=== PATIENT | male | born 2000 | race Caucasian/White ===

== ENCOUNTER 2018-02-28 14:18 | Emergency (ER) | payer OTHER, MEDICAID ==
[~2018-02-28] VITALS: Ht 172.7 cm; Wt 100.0 kg
[2018-02-28 14:40] VITALS: BP 147/70; PULSE 99; RESP 16; TEMP 98.7; O2SAT 98
[2018-02-28 14:40] LABS: AUTOMATED NEUTROPHIL # 6.4 TH/MM3 (1.8-7.7); BASOPHIL % 0.5 % (0.0-2.0); EOSINOPHIL # 0.1 TH/MM3 (0-0.4); EOSINOPHIL % 1.4 % (0.0-4.0); HEMATOCRIT 44.7 % (39.0-51.0); HEMOGLOBIN 15.3 GM/DL (13.0-17.0); LYMPH % 21.2 % (9.0-44.0); MEAN CELL VOLUME 80.5 FL (80.0-100.0); MEAN CORPUSCULAR HEMOGLOBIN 27.5 PG (27.0-34.0); MEAN CORPUSCULAR HGB CONC 34.2 % (32.0-36.0); MEAN PLATELET VOLUME 7.4 FL (7.0-11.0); MONO % 8.4 % (0.0-8.0); MONOCYTE # 0.8 TH/MM3 (0-0.9); NEUT % 68.5 % (16.0-70.0); PLATELET COUNT 361 TH/MM3 (150-450); RED BLOOD COUNT 5.56 MIL/MM3 (4.50-5.90); RED CELL DISTRIBUTION WIDTH 12.9 % (11.6-17.2); WHITE BLOOD COUNT 9.3 TH/MM3 (4.0-11.0)
[2018-02-28 14:41] VITALS: BP 147/70; PULSE 103; RESP 16; TEMP 98.7; O2SAT 98
[2018-02-28 14:43] VITALS: BP 147/70; PULSE 103; RESP 16; TEMP 98.7; O2SAT 98
[2018-02-28] MEDS ORDERED: SODIUM CHLOR 0.9% 1000 ML INJ 1,000 ML IV ONE ×2 (14:45)
[2018-02-28] MEDS ORDERED: IBUP-232 PO (14:46)
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
[2018-02-28 14:48] VITALS: BP 157/71; PULSE 105; RESP 15; O2SAT 99
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
[2018-02-28 15:08] LABS: INTERNATIONAL NORMALIZED RATIO 1.1 RATIO
[2018-02-28 15:49] VITALS: BP 181/79
== END 2018-02-28 15:49 | disposition home or self-care (01) ==
LOC: EDBD 14:18 → NEPE 14:18
DX: S69.92XA Unspecified injury of left wrist, hand and finger(s), initial encounter (principal); V49.9XXA Car occupant (driver) (passenger) injured in unspecified traffic accident, initial encounter
CPT/HCPCS: 71045; 72170; 73090; 80048; 85025; 85610; 85730; 86850; 86900; 86901; 99291; J7030; L3808; G0390